=== PATIENT | female | born 1950 | race Two or more races ===

== ENCOUNTER 2017-02-11 06:54 | Day surgery (SDC) | payer MEDICARE, OTHER ==
[2017-02-11] VITALS (10 sets, daily range): BP systolic 133–152; BP diastolic 57–64
[~2017-02-11] VITALS: Ht 149.9 cm; Wt 89.8 kg
[2017-02-11] MEDS: Gatifloxacin Opth Solution 0.5% RIGHT EYE SCH ×3 (06:00→06:10)
[~2017-02-11 06:54] MED LIST: BSS 15ml BTL ONE; BSS 500ml btl ONE; Dexamethasone 4mg/ml vial ONE; EPINEPHrine 1mg/1ml Amp ONE; Lidocaine 1% MPF 10mg/ml 5ml ONE; Sodium Hyaluronate 14 mg/ml 0.85ml ONE
[2017-02-11] MEDS ORDERED: Gatifloxacin Opth Solution 0.5% ONE (07:17)
[2017-02-11] MEDS ORDERED: Tobradex Opth Susp 2.5ml ONE (07:17)
[2017-02-11] MEDS ORDERED: Diclofenac Sod 0.1% Op Soln ONE (07:17)
[2017-02-11] MEDS ORDERED: Tropicamide 1% Opth Soln ONE (07:18)
[2017-02-11] MEDS ORDERED: Phenylephrine 2.5% Op Soln ONE (07:18)
[2017-02-11] MEDS ORDERED: Akten 3.5% 1ml Btl ONE (07:18)
[2017-02-11] MEDS: Akten 3.5% 1ml Btl RIGHT EYE SCH ×3 (07:33→07:55)
[2017-02-11] MEDS: Phenylephrine 2.5% Op Soln RIGHT EYE SCH ×3 (07:33→07:55)
[2017-02-11] MEDS: Tropicamide 1% Opth Soln RIGHT EYE SCH ×3 (07:33→07:55)
[2017-02-11] MEDS: Tobradex Opth Susp 2.5ml RIGHT EYE SCH ×3 (07:33→07:55)
[2017-02-11] MEDS: Diclofenac Sod 0.1% Op Soln RIGHT EYE SCH ×3 (07:33→07:55)
[2017-02-11] MEDS ORDERED: ADVAIR 250/501 PUFFS INH (08:02)
[2017-02-11] MEDS ORDERED: VITAMIN D1000 UNI1 ORAL (08:02)
--- NOTE | 2017-02-11 08:09 | Pre-Procedure Note/Attestation ---
Pre-Procedure Note/Attestation Complete Prior to Procedure Planned Procedure: right Procedure Narrative: cataract extraction with implant right eye Indications for Procedure Pre-Operative Diagnosis: cataract right eye Attestation I attest that I discussed the nature of the procedure; its benefits; risks and complications; and alternatives (and the risks and benefits of such alternatives ), prior to the procedure, with the patient (or the patient's legal car sales representative). I attest that, if there was a reasonable possibility of needing a blood transfusion, the patient (or the patient's legal car sales representative) was given the [facility] standardized written summary, pursuant to the [place] Blood Safety Act ([place] Health and Safety Code # 1645, as amended). I attest that I re-evaluated the patient just prior to the surgery and that there has been no change in the patient's H&P, except as documented below: PILY ADAMS Feb 11, 2017 08:08
[2017-02-11] MEDS ORDERED: LEVEMIR FL100 UNIT/1 SUBQ (08:21)
[2017-02-11] MEDS ORDERED: ROCATROL0.25 MCG PO (08:21)
[2017-02-11] MEDS ORDERED: FLONASE ALLERG9.9 ML NS (08:21)
[2017-02-11] MEDS ORDERED: PANTOPRAZOLE SO40 MG ORAL (08:21)
[2017-02-11] MEDS ORDERED: FUROSEMIDE20 MG ORAL (08:21)
[2017-02-11] MEDS ORDERED: BISOPROLOL FUMA10 MG PO (08:21)
[2017-02-11] MEDS ORDERED: LIPITOR80 MG ORAL (08:21)
[2017-02-11] MEDS ORDERED: LEVOTHYROXINE137 MCG ORAL (08:21)
[2017-02-11] MEDS ORDERED: EPOGEN2000 UNIT/ SUBQ (08:21)
[2017-02-11] MEDS ORDERED: MONTELUKAST SOD10 MG ORAL (08:21)
[2017-02-11] MEDS ORDERED: SODIUM BICARBO325 MG PO (08:21)
[2017-02-11] MEDS ORDERED: NOVOLOG100 UNITS1 SUBQ (08:21)
[2017-02-11] MEDS ORDERED: NORCO 5-325 TA1 EAC1 ORAL (08:21)
[2017-02-11] MEDS ORDERED: BENZONATATE200 MG ORAL (08:21)
[2017-02-11] MEDS ORDERED: ASPIR 8181 MG ORAL (08:21)
[2017-02-11] MEDS ORDERED: VENTOLIN HFA18 GM INH (08:23)
[2017-02-11] MEDS ORDERED: PROAIR HFA8.5 GM INH (08:23)
[2017-02-11 08:49] LABS: CALCIUM 8.5 mg/dL (8.6-10.2); CREATININE 4.1 mg/dL (0.5-0.9); GLOMERULAR FILTRATION RATE 10.8 mL/min (>60); POTASSIUM 3.9 mEQ/L (3.4-4.9)
[2017-02-11] MEDS ORDERED: Povidone-Iodine 5% opth solution ONE (08:59)
[2017-02-11] MEDS ORDERED: Lidocaine 1% MPF 10mg/ml 5ml ONE (09:00)
[2017-02-11] MEDS ORDERED: ePHEDrine 50mg/ml Inj ONE (09:00)
[2017-02-11] MEDS ORDERED: LR 1000ml ONE (09:00)
[2017-02-11] MEDS ORDERED: Metoclopramide 10mg/2ml Inj ONE (09:00)
[2017-02-11] MEDS ORDERED: Propofol 10mg/ml 20ml IV ONE (09:00)
[2017-02-11] MEDS ORDERED: Sterile Water Irrig 1000ml IRRIG ONE (09:00)
[2017-02-11] MEDS ORDERED: Midazolam 2mg/2ml Inj ONE (09:00)
[2017-02-11] MEDS ORDERED: fentaNYL 100 mcg/2 mL IV ONE (09:00)
[2017-02-11] MEDS ORDERED: NS Irrig 1000ml ONE (09:00)
--- NOTE | 2017-02-11 09:43 | Brief Operative Note ---
Immediate Post Operative Note Operative Note Pre-op Diagnosis: cataract right eye Procedure: phacoemulsification of cataract with implant right eye Post-op Diagnosis: same as pre-op Surgeon: pily brito Director Of Pediatric Rehabilitation: none Anesthesiologist: regulo gamble crna Anesthesia: MAC Specimen: none Complications: none Condition: stable Estimated Blood Loss: none Drains: none Implant(s) used?: Yes PILY BRITO Feb 11, 2017 09:43
--- NOTE | 2017-02-11 09:53 | Immediate Post-Op Evaluation ---
Immediate Post-Op Evalulation Immediate Post-Op Evalulation Procedure: cataract extraction right eye Date of Evaluation: Feb 11, 2017 Time of Evaluation: 09:52 IV Fluids: 200 Blood Pressure Systolic: 130 Blood Pressure Diastolic: 50 Pulse Rate: 70 Respiratory Rate: 20 O2 Sat by Pulse Oximetry: 100 Temperature (Fahrenheit): 97.8 Nausea: No Vomiting: No Complications none Patient Status: awake, patent, ventilated - in situ trach Hydration Status: adequate Drug: none LOWRIDAMEON ECHEVERRIA CRNA Feb 11, 2017 09:53
--- NOTE | 2017-02-11 10:23 | Anethesia Preoperative Eval ---
Anesthesia Pre-op PMH/ROS General Date of Evaluation: Feb 11, 2017 Time of Evaluation: 08:50 Anesthesiologist: mavis ASA Score: ASA 3 Mallampati Score Class I : Soft palate, uvula, fauces, pillars visible Class II: Soft palate, uvula, fauces visible Class III: Soft palate, base of uvula visible Class IV: Only hard plate visible Mallampati Classification: Class III Surgeon: alisha Diagnosis: cataract Surgical Procedure: cataract extraction with IOL right eye Anesthesia History: none Family History: no anesthesia problems Allergies: Coded Allergies: IODINE (Verified Allergy, Unknown, 02/09/17) Medications: see eMAR Past Medical History Cardiovascular: Reports: CAD, HTN, [place] Pulmonary: Reports: other Gastrointestinal/Genitourinary: Reports: other - CKD with fistula left arm Neurologic/Psychiatric: Denies: CVA, TIA, dementia, depression/anxiety, other Endocrine: Reports: DM HEENT: Reports: cataract (R) Musculoskeletal/Integumentary: Reports: DJD, other - hx ovarian ca Other: obesity - morbid PMH Narrative: 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 Exam Physician Exam Last Vital Signs Date Time Temp Pulse Resp B/P Pulse Ox O2 Delivery O2 Flow Rate FiO2 02/11/17 10:00 73 18 135/58 100 Trach Collar 6.0 02/11/17 09:40 97.3 Constitutional: NAD Neurologic: CN 2-12 intact Cardiovascular: RRR Respiratory: CTA Gastrointestinal: S/NT/ND Airway Exam Mallampati Score: Class III MO: limited Neck: thick ROM: limited Teeth: missing Dentures: no lower, no upper Anesthesia Pre-op A/P Labs Chemistry Test 02/11/17 07:40 Sodium Level 137 mEQ/L (135-145) Potassium Level 3.9 mEQ/L (3.4-4.9) Chloride Level 101 mEQ/L (98-107) Carbon Dioxide Level 21 mEQ/L (20-30) Anion Gap 15 (5-15) Blood Urea Nitrogen 77 mg/dL (7-23) H Creatinine 4.1 mg/dL (0.5-0.9) H Estimat Glomerular Filtration Rate 10.8 mL/min (>60) Glucose Level 108 mg/dL (74-106) H Calcium Level 8.5 mg/dL (8.6-10.2) L Studies Pre-op Studies: EKG - sr Risk Assessment & Plan Assessment: pt has in situ trach/ stable/ on RA Plan: MAC/General Pre-Antibiotics Drug: none Given Within 1 Hr of Incision: DAMEON Quinonez CRNA Feb 11, 2017 10:23
--- NOTE | 2017-02-11 11:11 | 48 Hour Post Anesthesia Eval ---
Post Anesthesia Evaluation Procedure: cataract extraction right eye Date of Evaluation: Feb 11, 2017 Time of Evaluation: 11:11 Blood Pressure Systolic: 140 0: 61 Pulse Rate: 70 Respiratory Rate: 14 O2 Sat by Pulse Oximetry: 99 Airway: patent, other - patent trach Nausea: No Vomiting: No Hydration Status: adequate Cardiopulmonary Status: stable Mental Status/LOC: patient returned to baseline Post-Anesthesia Complications: none Follow-up care needed: N/A DAMEON BUTLER CRNA Feb 11, 2017 11:11
--- NOTE | 2017-02-11 16:37 | Cardiology Report ---
APPROVED REPORT EKG Measurement Heart [id number] Normal sinus rhythm Normal ECG
--- NOTE | 2017-02-11 21:40 | Operative Note - Dictated ---
DATE OF OPERATION: 02/11/2017 PREOPERATIVE DIAGNOSIS: Cataract, right eye. POSTOPERATIVE DIAGNOSIS: Cataract, right eye. PROCEDURE: Phacoemulsification cataract right eye with placement of posterior chamber intraocular lens. SURGEON: Italo Schaffer M.D. DRAPERY HEMMER AUTOMATIC: None. ANESTHESIA: General. ANESTHESIOLOGIST: Dorothy Singh C.R.N.A. INDICATION FOR PROCEDURE: Hand motion vision, right eye. DESCRIPTION OF FINDINGS: Dense nuclear sclerotic cortical and posterior subcapsular cataract, right eye. DESCRIPTION OF PROCEDURE: The patient received a topical anesthetic block consisting of 2.5% Akten eye drops. She was then brought into the operating room, and then placed under general anesthesia. The eye was then prepped and draped in usual manner. A lid speculum was placed. An operating Zeiss microscope was positioned. The temporal corneal groove was made with a ruby blade. A SuperSharp blade made a stab incision at the 12 o'clock position. Healon was instilled into the anterior chamber. A 2.5/2.8 mm trapezoidal ruby blade was used to complete the temporal corneal wound. A cystotome was used to create an anterior capsular flap. Utrata forceps were used to complete the capsulorrhexis. BSS on a cannula was used to hydrodissect the nucleus. The lens nucleus was phacoemulsified in a phaco-fracture technique. Remaining cortical material was removed with the I/A and the posterior capsule was polished with the I/A on Cap vac. Healon was instilled in the capsular bag and anterior chamber, and an Abbot foldable one-piece posterior chamber intraocular lens model ZCB00, power 24.0 diopter, serial number #[id number] was placed in the injector. The lens was put in the capsular bag. The I/A tip was used to remove the Healon and position the lens. The wound edge was hydrated with BSS and a blunt-tipped cannula. The wound was checked and found to be watertight. The lid speculum was removed and a drop of TobraDex and Zymaxid was placed. A clear plastic shield was taped over the eye. The patient tolerated the procedure well and left the operating room in good condition. Italo Schaffer M.D. ([facility]) DR: JEREMÍAS JOB#: [id number] CC:
== END 2017-02-11 11:05 | disposition home or self-care (01) ==
LOC: EDBD 06:54 → SUR 06:54
DX: H25.811 Combined forms of age-related cataract, right eye (principal); E11.22 Type 2 diabetes mellitus with diabetic chronic kidney disease; I12.0 Hypertensive chronic kidney disease with stage 5 chronic kidney disease or end stage renal disease; N18.5 Chronic kidney disease, stage 5; Z79.4 Long term (current) use of insulin; D63.1 Anemia in chronic kidney disease; I50.42 Chronic combined systolic (congestive) and diastolic (congestive) heart failure; I25.2 Old myocardial infarction; I25.10 Atherosclerotic heart disease of native coronary artery without angina pectoris; E78.5 Hyperlipidemia, unspecified; E66.01 Morbid (severe) obesity due to excess calories; Z68.41 Body mass index [BMI] 40.0-44.9, adult; M19.90 Unspecified osteoarthritis, unspecified site; J30.9 Allergic rhinitis, unspecified; J39.8 Other specified diseases of upper respiratory tract; J38.00 Paralysis of vocal cords and larynx, unspecified; Z91.041 Radiographic dye allergy status; Z79.82 Long term (current) use of aspirin; Z79.899 Other long term (current) drug therapy
CPT/HCPCS: 36415; 66984; 80048; 82962; 93005; J0171; J1100; J2250; J2405; J2704; J2765; J3010; J7120; V2632; 94003; 94150

== ENCOUNTER 2017-05-13 06:22 | Day surgery (SDC) | payer MEDICARE, OTHER ==
[2017-05-13] VITALS (8 sets, daily range): BP systolic 144–179; BP diastolic 57–74
[~2017-05-13] VITALS: Ht 149.9 cm; Wt 93.0 kg
[~2017-05-13 06:22] MED LIST changes: +ADVAIR 250/501 PUFFS INH; +ASPIR 8181 MG ORAL; +Akten 3.5% 1ml Btl ONE; +BENZONATATE200 MG ORAL; +BISOPROLOL FUMA10 MG PO; -BSS 15ml BTL ONE; -BSS 500ml btl ONE; -Dexamethasone 4mg/ml vial ONE; -EPINEPHrine 1mg/1ml Amp ONE; +EPOGEN2000 UNIT/ SUBQ; +FLONASE ALLERG9.9 ML NS; +FUROSEMIDE20 MG ORAL; +Flurbiprofen 0.03% Opth Sol 2.5ml ONE; +LEVEMIR FL100 UNIT/1 SUBQ; +LEVOTHYROXINE137 MCG ORAL; +LIPITOR80 MG ORAL; -Lidocaine 1% MPF 10mg/ml 5ml ONE; +MONTELUKAST SOD10 MG ORAL; +NORCO 5-325 TA1 EAC1 ORAL; +NOVOLOG100 UNITS1 SUBQ; +PANTOPRAZOLE SO40 MG ORAL; +PROAIR HFA8.5 GM INH; +Phenylephrine 2.5% Op 2ml Soln ONE; +ROCATROL0.25 MCG PO; +SODIUM BICARBO325 MG PO; -Sodium Hyaluronate 14 mg/ml 0.85ml ONE; +Tobradex Opth Susp 2.5ml ONE; +Tropicamide 1% Opth 15ml Soln ONE; +VENTOLIN HFA18 GM INH; +VITAMIN D1000 UNI1 ORAL; +Vigamox Opth Soln 3ml ONE
[2017-05-13] MEDS: Flurbiprofen 0.03% Opth Sol 2.5ml LEFT EYE SCH ×3 (06:50→07:05)
[2017-05-13] MEDS: Phenylephrine 2.5% Op 2ml Soln LEFT EYE SCH ×3 (06:51→07:05)
[2017-05-13] MEDS: Vigamox Opth Soln 3ml LEFT EYE SCH ×3 (06:51→07:05)
[2017-05-13] MEDS: Tobradex Opth Susp 2.5ml LEFT EYE SCH ×3 (06:51→07:05)
[2017-05-13] MEDS: Tropicamide 1% Opth 15ml Soln LEFT EYE SCH ×3 (06:51→07:05)
[2017-05-13] MEDS: Akten 3.5% 1ml Btl LEFT EYE SCH ×3 (06:51→07:05)
[2017-05-13] MEDS ORDERED: BSS 500ml btl ONE (06:59)
[2017-05-13] MEDS ORDERED: Lidocaine 1% MPF 10mg/ml 5ml ONE (07:00)
[2017-05-13] MEDS ORDERED: Tetracaine 0.5% Opth 4ml Soln ONE (07:00)
[2017-05-13] MEDS ORDERED: Dexamethasone 4mg/ml vial ONE (07:00)
[2017-05-13] MEDS ORDERED: Povidone-Iodine 5% opth solution ONE (07:00)
[2017-05-13] MEDS ORDERED: acetaZOLAMIDE 125mg tab ONE (07:00)
[2017-05-13] MEDS ORDERED: EPINEPHrine 1mg/1ml Amp ONE (07:01)
[2017-05-13] MEDS ORDERED: BSS 15ml BTL ONE (07:01)
[2017-05-13] MEDS ORDERED: Carbachol 0.01% Op Soln 1.5ml vial ONE (07:01)
[2017-05-13] MEDS ORDERED: Midazolam 2mg/2ml Inj ONE (07:30)
[2017-05-13] MEDS ORDERED: fentaNYL 100 mcg/2 mL IV ONE (07:30)
--- NOTE | 2017-05-13 07:33 | Pre-Procedure Note/Attestation ---
Pre-Procedure Note/Attestation Complete Prior to Procedure Planned Procedure: left Procedure Narrative: cataract extraction with implant left eye Indications for Procedure Pre-Operative Diagnosis: cataract left eye Attestation I attest that I discussed the nature of the procedure; its benefits; risks and complications; and alternatives (and the risks and benefits of such alternatives ), prior to the procedure, with the patient (or the patient's legal development representative). I attest that, if there was a reasonable possibility of needing a blood transfusion, the patient (or the patient's legal development representative) was given the [facility] standardized written summary, pursuant to the Umesh [place] Blood Safety Act ([place] Health and Safety Code # 1645, as amended). I attest that I re-evaluated the patient just prior to the surgery and that there has been no change in the patient's H&P, except as documented below: PILY ADAMS May 13, 2017 07:33
--- NOTE | 2017-05-13 08:11 | Brief Operative Note ---
Immediate Post Operative Note Operative Note Pre-op Diagnosis: cataract left eye Procedure: phacoemulsification of cataract with implant left eye Post-op Diagnosis: same as pre-op Surgeon: piyl brito Presales Engineer: none Anesthesiologist: Dr. Salas Anesthesia: MAC Specimen: none Complications: none Condition: stable Fluids: none Estimated Blood Loss: none Drains: none Implant(s) used?: Yes PILY BRITO May 13, 2017 08:11
--- NOTE | 2017-05-13 08:39 | Anethesia Preoperative Eval ---
Anesthesia Pre-op PMH/ROS General Date of Evaluation: May 13, 2017 Time of Evaluation: 07:30 Anesthesiologist: Dylan ASA Score: ASA 3 Mallampati Score Class I : Soft palate, uvula, fauces, pillars visible Class II: Soft palate, uvula, fauces visible Class III: Soft palate, base of uvula visible Class IV: Only hard plate visible Mallampati Classification: Class III Surgeon: Sarbjit Diagnosis: catract left eye Surgical Procedure: left eye cataract removal with IOL placement Anesthesia History: none Family History: no anesthesia problems Allergies: Coded Allergies: IODINE (Verified Adverse Reaction, Severe, diarrhea, rash , 05/13/17) Medications: see eMAR Past Medical History Cardiovascular: Reports: HTN, CAD, [place] Gastrointestinal/Genitourinary: Reports: CRI Endocrine: Reports: DM HEENT: Reports: cataract (L), cataract (R) Other: obesity Anesthesia Pre-op Phys. Exam Physician Exam Last Vital Signs Date Time Temp Pulse Resp B/P (MAP) Pulse Ox O2 Delivery O2 Flow Rate FiO2 05/13/17 08:29 66 20 166/66 97 Nasal Cannula 3.0 05/13/17 08:05 97.5 Constitutional: NAD Neurologic: CN 2-12 intact Cardiovascular: RRR Respiratory: CTA Gastrointestinal: S/NT/ND Airway Exam Mallampati Score: Class III MO: full ROM: full Teeth: intact Anesthesia Pre-op A/P Labs reviewed in chart Accucheck 170 pre op Studies Pre-op Studies: EKG - NSR Risk Assessment & Plan Plan: MAC Status Change Before Surgery: No Pre-Antibiotics Given Within 1 Hr of Incision: No Christina Richardson CRNA May 13, 2017 08:39
--- NOTE | 2017-05-13 08:40 | Immediate Post-Op Evaluation ---
Immediate Post-Op Evalulation Immediate Post-Op Evalulation Date of Evaluation: May 13, 2017 Time of Evaluation: 08:06 IV Fluids: 200 ml NSS Estimated Blood Loss: 0 Urinary Output: 0 Blood Pressure Systolic: 171 Blood Pressure Diastolic: 71 Pulse Rate: 66 Respiratory Rate: 22 O2 Sat by Pulse Oximetry: 100 Temperature (Fahrenheit): 97.5 Pain Score (1-10): 0 Nausea: No Vomiting: No Patient Status: awake, reacts Hydration Status: adequate Given Within 1 Hr of Incision: No Christina Richardson CRNA May 13, 2017 08:40
--- NOTE | 2017-05-13 08:42 | 48 Hour Post Anesthesia Eval ---
Post Anesthesia Evaluation Date of Evaluation: May 13, 2017 Time of Evaluation: 08:41 Blood Pressure Systolic: 162 0: 68 Pulse Rate: 67 Respiratory Rate: 20 Temperature (Fahrenheit): 97.4 O2 Sat by Pulse Oximetry: 100 Airway: patent Nausea: No Vomiting: No Hydration Status: adequate Mental Status/LOC: patient returned to baseline Follow-up care needed: patient intructions given Christina Richardson CRNA May 13, 2017 08:42
[2017-05-13] MEDS ORDERED: Sodium Hyaluronate 14 mg/ml 0.85ml ONE (10:44)
--- NOTE | 2017-05-13 18:46 | Operative Note - Dictated ---
DATE OF OPERATION: 05/13/2017 PREOPERATIVE DIAGNOSIS: Cataract, left eye. POSTOPERATIVE DIAGNOSIS: Cataract, left eye. PROCEDURE: Phacoemulsification, cataract, left eye with placement of posterior chamber intraocular lens. SURGEON: Italo Schaffer M.D. RADIOLOGIC TECH: None. ANESTHESIA: MAC/topical. ANESTHESIOLOGIST: Christina Richardson CRNA INDICATION FOR PROCEDURE: Poor vision, left eye. DESCRIPTION OF FINDINGS: Nuclear sclerotic, cortical, and posterior subcapsular cataract, left eye. DESCRIPTION OF PROCEDURE: The patient received a topical anesthetic block consisting of 3.5% Akten eye drops. The eye was then prepped and draped in usual manner. A lid speculum was placed. An operating Zeiss microscope was positioned. The temporal corneal groove was made with the ruby blade. A SuperSharp blade made a stab incision at the 6 o'clock position. A 0.1 mL of 1% nonpreserved intracameral lidocaine was injected. Healon was instilled into the anterior chamber and a 2.5/2.8 mm trapezoidal ruby blade was used to complete the temporal corneal wound. A cystotome was used to create an anterior capsular flap. Utrata forceps were used to complete the capsulorrhexis. BSS on a cannula was used to hydrodissect the nucleus. The lens nucleus phacoemulsified in a phaco-fracture technique. Remaining cortical material was removed with the I/A and the posterior capsule polished with the I/A on Cap vac. Healon was instilled into the capsular bag and anterior chamber, and an [employer] foldable one-piece posterior chamber intraocular lens, model ZCB00, power 24.0 diopter, serial number #[id number] was placed in the injector. The lens was put near the capsular bag. The I/A tip was used to remove the Healon and position the lens. The wound edge was hydrated with BSS and a blunt-tipped cannula. The wound was checked and found to be watertight. The lid speculum was removed and a drop of TobraDex and Vigamox was placed. A clear plastic shield was taped over the eye. The patient tolerated the procedure well and left the operating room in good condition. Italo Schaffer M.D. ([facility]) DR: CHICA JOB#: [id number] CC: GINA
--- NOTE | 2017-05-14 23:04 | Cardiology Report ---
APPROVED REPORT EKG Measurement Heart [id number] Normal sinus rhythm Normal ECG
== END 2017-05-13 09:20 | disposition home or self-care (01) ==
LOC: SUR 06:22
DX: H25.12 Age-related nuclear cataract, left eye (principal); H25.042 Posterior subcapsular polar age-related cataract, left eye; I25.10 Atherosclerotic heart disease of native coronary artery without angina pectoris; E78.5 Hyperlipidemia, unspecified; I13.2 Hypertensive heart and chronic kidney disease with heart failure and with stage 5 chronic kidney disease, or end stage renal disease; E11.22 Type 2 diabetes mellitus with diabetic chronic kidney disease; N18.5 Chronic kidney disease, stage 5; D63.1 Anemia in chronic kidney disease; Z93.0 Tracheostomy status; Z91.041 Radiographic dye allergy status; Z85.43 Personal history of malignant neoplasm of ovary; I25.2 Old myocardial infarction; Z79.82 Long term (current) use of aspirin; Z79.4 Long term (current) use of insulin
CPT/HCPCS: 66984; 82962; 93005; J0171; J1100; J2250; J3010; V2632; 94003; 94150